=== PATIENT | female | born 2000 | race Caucasian/White ===

== ENCOUNTER 2018-10-16 13:56 | Emergency (ER) | payer OTHER ==
--- NOTE | 2018-10-16 15:23 | EDPHY ---
H & P Time Seen by Provider: 10/16/18 14:54 HPI/ROS: CHIEF COMPLAINT: Depression HISTORY OF PRESENT ILLNESS: Patient is a 18-year-old female with a history of depression for the last few years. She states over the past few months for depression has worsened. She is not currently taking medication for depression. She sees a counselor once a week. She last saw the counselor 2 weeks ago. She states she has had suicidal thoughts but does not have a specific plan. She has 1 previous suicide attempt a year ago in October when she slit her wrist. She was not seen by healthcare provider at that time. Patient denies any ingestion. She denies any self-harm. REVIEW OF SYSTEMS: 10 systems were reveiwed and are negative with the exception of the elements mentioned in the history of present illness. Past Medical/Surgical History: Includes depression Past surgical history: Negative Social history: Patient does not smoke. She denies drugs. Physical Exam: Vitals noted GENERAL: Well-appearing, in no acute distress, alert. HEENT: Eyes normal to inspection, normal pharynx, no signs of dehydration. NECK: Normal, supple. RESPIRATORY: Clear to auscultation bilaterally, no rales, rhonchi or wheezing. CVS: Regular rate and rhythm, no rubs, murmurs, or gallops. ABDOMEN: Soft, nontender, nondistended, no organomegaly. BACK: Normal to inspection, no CVA tenderness. SKIN: Normal color, no rash, warm, dry. No pallor. EXTREMITIES: No pedal edema, no calf tenderness, no Homans sign or cords, no joint swelling. No trauma NEURO/PSYCH: Alert and oriented, normal mood and affect, normal motor sensory exam. No obvious cranial nerve deficit. Constitutional: Initial Vital Signs Temperature (C) 37.2 C 10/16/18 14:22 Heart Rate 94 10/16/18 14:22 Respiratory Rate 16 10/16/18 14:22 Blood Pressure 131/83 H 10/16/18 14:22 O2 Sat (%) 99 10/16/18 14:22 O2 Delivery Mode Room Air Allergies/Adverse Reactions: No Known Allergies Allergy (Unverified 10/16/18 14:25) Home Medications: Medication Instructions Recorded NK [No Known Home Meds] 10/16/18 Medical Decision Making ED Course/Re-evaluation: In the emergency department I discussed possible etiologies with the patient and her mother. I answered all her questions. She consented to laboratory studies. Laboratory studies were ordered. Psychiatric Services were consulted. CBC and chemistry unremarkable. is negative. Tox screen is negative. Discussed case with Psychiatric Services. They recommend admission. Patient was placed on as M1 hold Differential Diagnosis: My differential includes but is not limited to depression, bipolar disorder, suicidal ideation, anxiety - Data Points Laboratory Results: Laboratory Results 10/16/18 15:25 10/16/18 15:25 10/16/18 10/16/18 10/16/18 15:30 15:25 15:25 WBC RBC Hgb Hct MCV MCH MCHC RDW Plt Count MPV Neut % (Auto) Lymph % (Auto) [place] % (Auto) Eos % (Auto) Baso % (Auto) Nucleat RBC Rel Count Absolute Neuts (auto) Absolute Lymphs (auto) Absolute Monos (auto) Absolute Eos (auto) Absolute Basos (auto) Absolute Nucleated RBC Immature Gran % Immature Gran # Sodium 141 mEq/L mEq/L (135-145) Potassium 4.0 mEq/L mEq/L (3.5-5.2) Chloride 108 mEq/L mEq/L (97-110) Carbon Dioxide 22 mEq/l mEq/l (22-31) Anion Gap 11 mEq/L mEq/L (6-14) BUN 17 mg/dL mg/dL (7-23) Creatinine 0.8 mg/dL mg/dL (0.6-1.0) Estimated GFR > 60 Glucose 85 mg/dL mg/dL (70-100) Calcium 9.8 mg/dL mg/dL (8.5-10.4) Beta HCG, Qual NEGATIVE Salicylates < 1.0 mg/dL L mg/dL (2.0-20.0) Urine Opiates Screen NEGATIVE (NEGATIVE) Acetaminophen < 10 mcg/mL L mcg/mL (10-30) Urine Barbiturates NEGATIVE (NEGATIVE) Ur Phencyclidine Scrn NEGATIVE (NEGATIVE) Ur Amphetamine Screen NEGATIVE (NEGATIVE) U Benzodiazepines Scrn NEGATIVE (NEGATIVE) Urine Cocaine Screen NEGATIVE (NEGATIVE) U Marijuana (THC) Screen NEGATIVE (NEGATIVE) Ethyl Alcohol < 10 mg/dL mg/dL (0-10) 10/16/18 15:25 WBC 7.87 10^3/uL 10^3/uL (3.80-9.50) RBC 4.91 10^6/uL 10^6/uL (4.18-5.33) Hgb 15.0 g/dL g/dL (12.6-16.3) Hct 45.4 % % (38.0-47.0) MCV 92.5 fL fL (81.5-99.8) MCH 30.5 pg pg (27.9-34.1) MCHC 33.0 g/dL g/dL (32.4-36.7) RDW 12.3 % % (11.5-15.2) Plt Count 321 10^3/uL 10^3/uL (150-400) MPV 9.6 fL fL (8.7-11.7) Neut % (Auto) 63.1 % % (39.3-74.2) Lymph % (Auto) 26.0 % % (15.0-45.0) [place] % (Auto) 7.1 % % (4.5-13.0) Eos % (Auto) 2.3 % % (0.6-7.6) Baso % (Auto) 0.9 % % (0.3-1.7) Nucleat RBC Rel Count 0.0 % % (0.0-0.2) Absolute Neuts (auto) 4.96 10^3/uL 10^3/uL (1.70-6.50) Absolute Lymphs (auto) 2.05 10^3/uL 10^3/uL (1.00-3.00) Absolute Monos (auto) 0.56 10^3/uL 10^3/uL (0.30-0.80) Absolute Eos (auto) 0.18 10^3/uL 10^3/uL (0.03-0.40) Absolute Basos (auto) 0.07 10^3/uL 10^3/uL (0.02-0.10) Absolute Nucleated RBC 0.00 10^3/uL 10^3/uL (0-0.01) Immature Gran % 0.6 % % (0.0-1.1) Immature Gran # 0.05 10^3/uL 10^3/uL (0.00-0.10) Sodium Potassium Chloride Carbon Dioxide Anion Gap BUN Creatinine Estimated GFR Glucose Calcium Beta HCG, Qual Salicylates Urine Opiates Screen Acetaminophen Urine Barbiturates Ur Phencyclidine Scrn Ur Amphetamine Screen U Benzodiazepines Scrn Urine Cocaine Screen U Marijuana (THC) Screen Ethyl Alcohol Departure - Departure Disposition: Other Psych, Not [facility] Clinical Impression: Depression Qualifiers: Depression Type: unspecified Qualified Code(s): F32.9 - Major depressive disorder, single episode, unspecified Condition: Good Instructions: Depression (ED) Referrals: NONE *PRIMARY CARE P,. [Primary Care Provider] - As per Instructions
[2018-10-16 15:47] LABS: PLATELET COUNT 321 10^3/uL (150-400)
--- NOTE | 2018-10-16 19:18 | ASMTTLCEVL ---
TLC Evaluation - Basic Information Evaluation Start Date and 10/16/2018 05:00 PM Time Hospital Status Answers: M1 Hold 72-hr M1 Hold Start Date 10/16/2018 05:25 PM and Time Patient statement Notes: It wasnt really my idea. Lately, Radha been having a lot of suicidal thoughts and over the past month, its been getting worse. Narrative Notes: Pt is a 18 year female who presented voluntarily with her mother. Pts reports over the past few months her depression has worsened. She reports she has suicidal thoughts but no specific plan. Pt states she has thought of ways she would commit suicide and stated, Radha thought of a lot of ways-taking a lot of pills, slitting my wrists. Pts Mother Helena, pt told her, right before coming into the ED, maybe I do need inpatient. Helena stated that pt used to be very active and stated, I just want her to have her life back. Pt reports having difficulty focusing, feels depressed every day, tired and stated she feels numb. She states, I just dont have energy or care about anything. I just dont think I will get better. This whole thing is stupid. This proposal lead writer asked pt if she feels like she would be able to keep herself safe if she was discharged from the hospital and pt stated, I dont know. Diagnosis History Notes: Pt reports she was dx with depression. Prior suicide attempts Notes: Pt had 1 prior suicide attempt, last October by cutting her wrists. Prior hospitalizations Notes: Pt denied any prior hospitalizations. Treatment Responses Notes: N/A History of violence Notes: Pt denied wanting to harm others. Therapist: Pt sees Michelle Shultz in [place]. Pt states her last appointment was 2 weeks ago and she has not scheduled her next appointment. Medications (name, dosage, route, freq uency) Notes: None Allergies/Reaction Notes: Nka Sleep Notes: Pt reports having difficulty sleeping over the past couple months. Appetite Notes: Pt reports a decrease in appetite. Pt had not eaten the dinner provided for her in the emergency department. Pts mother asked for a cup of water for pt and stated that pt had not been drinking enough water. Medical/Surgical history Notes: None reported. Substance use history (frequency, intensity, his tory, duration) Notes: Pt denied any drug or etoh use. Pts utox was negative for all substances and bal was.0. Family composition Notes: Pt has 3 sisters, 2 younger and 1 older sister. Pts father lives in [place], [place] and pt lives with her Mother. Pt reports she does not speak to her father that often. Need for family Answers: No participation in patient's care Family psychiatric/substance abuse history Notes: Unable to assess. Developmental history Notes: Pt stated there was a lot of tension and fighting in her home while growing up. Pt reported she did well in school academically. She reports she has never been very social but she had a coupe friends in school. Pt denied any concussions. Pt denied any ADHD dx. Pt denied any childhood abuse hx. Abuse concerns Answers: None Marital status/children Notes: Unmarried, no children. Living situation Notes: Pt lives in [place] with her 2 younger sisters and mother. Sexual history/orientation Notes: Unable to assess. Peer support/family strengths Notes: Pt stated she does not have a lot of friends. Pt stated, I have a lot of trouble opening up to most people. Pt states she has 1 close friend, she states she is not involved in any social activities at this time. Education level/history Notes: Pt graduated from [employer]. Per pts mother, pt graduated from high school at age 14 with a 4.3 GPA. 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 Notes: None Legal Notes: None reported. Roman Catholic/Spiritual Notes: None that would interfere with tx. Leisure Notes: Pt stated she enjoys reading. She stated, I dont really know. Pt stated she used to enjoy hiking, running, riding. Pt stated its been about a year since she enjoyed these activities. Collateral Notes: Mother-Helena Patient's strengths Answers: Intelligent (Please select at least TWO strengths): Supportive Family TLC Evaluation - Mental Status Exam Appearance: Answers: Appropriate Eye Contact: Answers: Intermittent Mood: Answers: Depressed Affect: Answers: Flat Sad Behavior: Answers: Cooperative Withdrawn Speech: Answers: Relevant Logical Clear Coherent Thought Process: Answers: Organized Oriented Alert Intact Insight: Answers: Good Judgement: Answers: Good Depression Answers: Difficulty Concentrating Signs/Symptoms: Diminished Interest Diminished Pleasure Flat Affect Hopelessness Psychomotor Retardation Sad Mood Withdrawn Worthlessness Hallucinations: Answers: None Pt reported to have Answers: No suicidal/self-injuring ideation/behavior? Pt reported to be making Answers: No suicidal/self-injuring threats? Pt reported to have Answers: No aggression/assault ideation/behavior? Pt reported to be making Answers: No aggression/assault threats? Pt exhibits inability to Answers: No care for self/grave disability? Ideation/behavior is Answers: No chronic? Patient has a specific Answers: No plan? History of Answers: Yes suicidal/self-injuring ideation, behavior, or threats? History of Answers: No aggressive/assaultive ideation, behavior, or threats? History of serious Answers: No physical harm to self/others while in treatment setting? TLC Evaluation - Suicide/Homicide Risk Suicide Risk Factors: Answers: < 20 or > 40 Years of Age Flat Affect Hopelessness Inadequate Social Support Major Depression Prior Suicide Attempt(s) Homicide/violence risk Answers: None factors: Current Suicidal Answers: Yes Ideation? Current Suicide Ideation Pt has suicidal thoughts, but no plan. Frequency: Current Suicidal Ideation Answers: Yes in the Past 48 Hours? Current Suicidal Ideation Answers: Yes in the Past Month? Current Suicidal Answers: No Ideation, Worst Ever? Suicide Internal Answers: Absence of Psychosis Protective Factors: Suicide External Answers: Other Notes: Relationship with mothe r Protective Factors: and siblings. Ranking of patient's Answers: Severe suicidal risk: Ranking of patient's Answers: Low homicidal risk: TLC Evaluation - Wrap-up AXIS I Diagnosis (include DSM-V and ICD-10 codes), must also be entered in [employer], which is the source of truth. Notes: Major Depressive Disorder, recurrent, severe 296.33 (F33.2) In consultation with [facility] ED physician, Marycruz Walker MD and on-call psychiatrist, Carla Emanuel MD, both concurred that pt appears to meet 27-65 criteria requiring psychiatric hospitalization as pt appears to be at risk of harm to self due to a mental illness condition. Pt was given the 3N prohibited belongings list while in the ED. Evaluation End Date and 10/16/2018 07:15 PM Time (HH:MERY): Date Signed: 10/16/2018 07:17 PM Electronically Signed By:Sneha Braga
[2018-10-16 20:02] VITALS: BP 124/71
--- NOTE | 2018-10-16 23:14 | ASMTTCLDSP ---
TLC Discharge Disposition Disposition: Answers: Transfer Discharge Concerns/Recommendations: Notes: In consultation with [facility] ED physician, Marycruz Walker MD and on-call psychiatrist, Carla Emanuel MD, both concurred that pt appears to meet 27-65 criteria requiring psychiatric hospitalization as pt appears to be at risk of harm to self due to a mental illness condition. Pt was given the 3N prohibited belongings list while in the ED. For Transfers, Accepting [facility]: For Transfers, Accepting Dr. Sen Psychiatrist: For Transfers, Reason Needs strictly non acute setting Patient is Being Transferred: Date Signed: 10/16/2018 11:14 PM Electronically Signed By:Sneha Braga
== END 2018-10-16 21:34 ==
DX: F32.9 Major depressive disorder, single episode, unspecified (principal); R45.851 Suicidal ideations
CPT/HCPCS: 80305; G0480